=== PATIENT | female | born 2000 | race Caucasian/White ===

== ENCOUNTER 2021-06-25 09:12 | Emergency (ER) | payer MEDICAID, SELFPAY ==
[2021-06-25 09:25] VITALS: BP 110/80; PULSE 72; RESP 16; TEMP 36.7; O2SAT 99; BMI 22.6
--- NOTE | 2021-06-25 09:38 | ECG_ITS ---
APPROVED REPORT Exam: Resting ECG HR:65 bpm ECG Measurements Heart Rate 65 AXES OR 145 P 47 QRSd 78 QRS 75 QT 380 T 57 QTc 391 Conclusion SINUS RHYTHM NORMAL ECG UNCONFIRMED REPORT Electronically signed by : Jose Cunningham MD 06/25/2021 20:09:40
[2021-06-25 09:41] LABS: Microscopic, Urine URINE MICROSCOPIC (MICROSCOPIC)
--- NOTE | 2021-06-25 09:42 | HMH.EDGENADL ---
ED Disposition Clinical Impression: Left against medical advice Vomiting Qualifiers: Vomiting type: unspecified Nausea presence: with nausea Qualified Code(s): R11.2 - Nausea with vomiting, unspecified Diarrhea Qualifiers: Diarrhea type: unspecified type Qualified Code(s): R19.7 - Diarrhea, unspecified Abdominal pain Qualifiers: Abdominal location: unspecified location Qualified Code(s): R10.9 - Unspecified abdominal pain Disposition: Left Against Medical Advice Condition on Discharge: Good Referrals: Provider,Referral, MD [Primary Care Provider] - - Critical Care Critical Care Time: No Attestation: On , the high probability of a clinically significant, sudden or life threatening deterioration of the following system(s) required my full and direct attention, intervention and personal management. The time I documented below is in addition to time spent performing reported procedures but includes the following listed in this critical care notation. Medical Decision Making - Roger Inquiry Pt receiving controlled substance: No Vital Signs: 06/25/21 09:25 06/25/21 11:09 Temperature 98.1 F Temperature Source Oral Pulse Rate 68 Pulse Rate [Left Radial] 72 Respiratory Rate 16 Blood Pressure 120/61 Blood Pressure [Right Arm] 110/80 Blood Pressure Mean 77 Blood Pressure Mean [Right Arm] 90 02 Sat by Pulse Oximetry 99 100 Oxygen Delivery Method Room Air - Lab Data Lab Results 06/25/21 09:34: Urine Color Yellow, Urine Appearance Clear, Urine pH 6.5, Ur Specific [place] 1.025, Urine Protein Negative, Urine Glucose (UA) Negative, Urine Ketones Negative, Urine Blood Negative, Urine Nitrate Negative, Urine Bilirubin Negative, Urine Urobilinogen 0.2, Ur Leukocyte Esterase Negative, Urine RBC 3-5, Urine WBC None, Ur Squamous Epith Cells Occasional, Urine Bacteria Trace 06/25/21 09:34: Urine HCG, Qual Negative 06/25/21 09:40: WBC 5.3, RBC 4.43, Hgb 14.3, Hct 43.2, MCV 97.6, MCH 32.3 H, MCHC 33.1, RDW 12.7, Plt Count 288, MPV 8.4, Neut % (Auto) 64.0, Lymph % (Auto) 28.4, [place] % (Auto) 6.0, Eos % (Auto) 1.6, Baso % (Auto) 5.1 H, Neut # (Auto) 3.4, Lymph # (Auto) 1.5, [place] # (Auto) 0.3, Eos # (Auto) 0.1, Baso # (Auto) 0.3 H 06/25/21 09:40: Sodium 141, Potassium 4.1, Chloride 108 H, Carbon Dioxide 27, Anion Gap 10.1, BUN 15, Creatinine 0.70, Estimated Creat Clear 109, Estimated GFR 106, Est GFR ( Amer) 128, Glucose 97, Calcium 8.2 L, Total Bilirubin 0.5, AST 29, ALT 14, Alkaline Phosphatase 49, Total Protein 7.3, Albumin 4.3, Globulin 3.0, Albumin/Globulin Ratio 1.4 06/25/21 09:40: Lipase 66 06/25/21 09:40: TSH 0.98, Free T4 Index 2.7 L, Thyroxine (T4) 8.3, T3 Uptake 33 06/25/21 09:40: Urine Opiates Screen Negative, Urine Methadone Screen Negative, Ur Barbituates Screen Negative, Ur Phencyclidine Scrn Negative, Ur Amphetamines Screen Negative, U Benzodiazepines Scrn Negative, Urine Cocaine Screen Negative, U Marijuana (THC) Screen Positive H 06/25/21 09:40: ESR 16 06/25/21 09:40: C-Reactive Protein 1.2 Result diagrams: 06/25/21 09:40 06/25/21 09:40 Orders (Tests/Meds): ED MEDICATIONS Generic Name Dose Route Start Last Admin Trade Name Freq PRN Reason Stop Dose Admin Sodium Chloride 10 ml 06/25/21 09:30 Sodium Chloride 0.9% 10ml Flush Syringe IV 07/25/21 09:29 NEEDED PRN Maintain IV Site Discontinued Medications Generic Name Dose Route Start Last Admin Trade Name Freq PRN Reason Stop Dose Admin Lactated Ringer's 1,000 mls @ 999 mls/hr 06/25/21 09:45 06/25/21 09:48 Lactated Ringer's 1000 Ml Bag IV 06/25/21 10:45 999 mls/hr .Q1H1M KARLO Administration Iopamidol 75 ml 06/25/21 11:49 06/25/21 11:50 Iopamidol-370 (76%);100ml Bottle IV 06/25/21 11:50 75 ml ONCE ONE Administration Ondansetron HCl 4 mg 06/25/21 09:44 06/25/21 09:48 Ondansetron 4mg/2ml Vial IV 06/25/21 09:45 4 mg ONCE ONE Administration Sodium Chloride 10 ml 06/25/21 11:49
--- NOTE | 2021-06-25 09:42 | PC.NURSE ---
RN at bedside getting labs and IV, Tech did EKG @ 0037
[2021-06-25 09:57] LABS: Basophils # 0.3 K/mm3 (0-0.2); Basophils % 5.1 % (0.1-2.0); Eosinophils # 0.1 K/mm3 (0.0-0.4); Eosinophils % 1.6 % (0.1-12.0); Hematocrit 43.2 % (37.0-47.0); Hemoglobin 14.3 g/dL (12.2-16.2); Lymphocytes # 1.5 K/mm3 (0.7-4.5); Lymphocytes % 28.4 % (10-50); Mean Corpuscular HGB Conc 33.1 g/dL (31.8-35.4); Mean Corpuscular Hemoglobin 32.3 pg (27.0-31.2); Mean Corpuscular Volume 97.6 fl (81-99); Mean Platelet Volume 8.4 fl (7.4-10.4); Monocytes # 0.3 K/mm3 (0.1-1.0); Neutrophils # 3.4 K/mm3 (1.8-7.8); Platelet Count 288 K/mm3 (142-424); Red Blood Count 4.43 M/mm3 (4.20-5.40); Red Cell Distribution Width 12.7 % (11.5-17.5); White Blood Count 5.3 K/mm3 (4.8-10.8)
[2021-06-25 10:01] LABS: Appearance,Urine CLEAR (Clear); Bilirubin,Urine Negative (Negative); Blood, Urine Negative (Negative); Color,Urine YELLOW (Yellow); Glucose,Urine (UA) Negative (Negative); Ketones,Urine Negative (Negative); Leukocyte Esterase,Urine Negative (Negative); Nitrate,Urine Negative (Negative); PH,Urine 6.5 (5.0-8.5); Protein,Urine Negative (Negative); Specific Gravity, Urine 1.025 (1.005-1.030); Urobilinogen,Urine 0.2 EU/dl (0.2)
[2021-06-25 10:02] LABS: Urine Pregnancy, HCG Qual. Negative (Negative)
[2021-06-25 10:04] LABS: Chloride 108 mmol/L (98-107); Sodium 141 mmol/L (136-145)
[2021-06-25 10:05] LABS: Potassium 4.1 mmoL/L (3.5-5.1)
[2021-06-25 10:07] LABS: Alanine Aminotransferase 14 U/L (12-78); Albumin Level 4.3 g/dl (3.5-5.0); Albumin/Globulin Ratio 1.4 (1.1-1.8); Alkaline Phosphatase 49 U/L (38-126); Anion Gap 10.1 mEq/L (5-15); Aspartate Amino Transferase 29 U/L (14-36); Bilirubin,Total 0.5 mg/dl (0.2-1.3); Blood Urea Nitrogen 15 mg/dl (7-17); Carbon Dioxide 27 mmol/L (22.0-30.0); Creatinine Clearance Estimated 109 mL/min (50-200); Estimated Glomerular Filt Rate 106 ml/min (>60); GFR (African American) 128 ML/MIN (>60); Total Protein,Serum 7.3 g/dl (6.3-8.2)
[2021-06-25 10:08] LABS: Calcium 8.2 mg/dl (8.4-10.2); Glucose 97 mg/dl (74-100)
[2021-06-25 10:32] LABS: Lipase 66 U/L (23-300)
[2021-06-25 10:42] LABS: Bacteria,Urine Trace /lpf; Squamous Epithelial Cell,Urine Occasional #/hpf (0-5)
--- NOTE | 2021-06-25 10:42 | CT_ITS ---
PROCEDURE INFORMATION: Exam: CT Abdomen And Pelvis With Contrast Exam date and time: 06/25/2021 11:40 AM Age: 21 years old Clinical indication: Vomiting; Additional info: Abdo pain, vomiting, diarrhea for 1 mo TECHNIQUE: Imaging protocol: Computed tomography of the abdomen and pelvis with contrast. Radiation optimization: All CT scans at this facility use at least one of these dose optimization techniques: automated exposure control; mA and/or kV adjustment per patient size (includes targeted exams where dose is matched to clinical indication); or iterative reconstruction. Contrast material: ISOVUE; Contrast volume: 75 ml; Contrast route: IV; COMPARISON: No relevant prior studies available. FINDINGS: Liver: Normal. No mass. Gallbladder and bile ducts: Pericholecystic fluid. Possible gallstones.. Pancreas: Normal. No ductal dilation. Spleen: Normal. No splenomegaly. Adrenal glands: Normal. No mass. Kidneys and ureters: Normal. No hydronephrosis. Stomach and bowel: Low-attenuation bowel wall thickening is seen throughout the colon consistent with colitis. Differential diagnosis includes infectious and inflammatory etiologies.. Appendix: Normal appendix Intraperitoneal space: Unremarkable. No free air. No significant fluid collection. Vasculature: Unremarkable. No abdominal aortic aneurysm. Lymph nodes: Unremarkable. No enlarged lymph nodes. Urinary bladder: Unremarkable as visualized. Reproductive: Tampon in the vagina Bones/joints: Unremarkable. No acute fracture. Soft tissues: Unremarkable. IMPRESSION: 1. Low-attenuation bowel wall thickening is seen throughout the colon consistent with colitis. Differential diagnosis includes infectious and inflammatory etiologies.. . 2. Pericholecystic fluid. Possible gallstones No gallbladder wall thickening. Recommend further evaluation for acute cholecystitis if clinically indicated.
[2021-06-25 10:50] LABS: Benzodiazepines Screen,Urine Negative ng/ml (<200)
[2021-06-25 10:51] LABS: Amphetamine/Metha Screen,Urine Negative ng/ml (<1000); Free Thyroxine Index 2.7 ug/dL (5.93-13.13); T4 (Thyroxine) 8.3 ug/dl (5.53-11.0); Triiodothryronine (T3) Uptake 33 % (23.5-40.5)
[2021-06-25 10:52] LABS: Barbiturates Screen,Urine Negative ng/ml (<200); Cannabinoid Screen,Urine Positive ng/ml (<50)
[2021-06-25 10:53] LABS: Cocaine Screen,Urine Negative ng/ml (<300); Methadone Screen,Urine Negative ng/ml (<300)
[2021-06-25 10:54] LABS: Opiate Screen,Urine Negative ng/ml (<300)
[2021-06-25 10:55] LABS: Phencyclidine Screen,Urine Negative ng/ml (<25)
[2021-06-25 10:57] LABS: C-Reactive Protein 1.2 mg/L (0-4)
[2021-06-25 11:04] LABS: Thyroid Stimulating Hormone 0.98 uIU/mL (0.465-4.68)
[2021-06-25 11:09] VITALS: BP 120/61; PULSE 68; O2SAT 100
[2021-06-25 11:11] LABS: Erythrocyte Sedimentation Rate 16 mm/hr (0-20)
--- NOTE | 2021-06-25 12:38 | PC.NURSE ---
pt asked staff what the status of her dispo was. informed pt that we were awaiting CT report results. pt stated she did not want to wait on report she wanted to sign out ama. educated pt on the risks of leaving and pt still wanted to leave. ama paper signed and notified.
[2021-06-25 12:45] VITALS: BP 121/74; PULSE 85; RESP 17; TEMP 36.7; O2SAT 100
== END 2021-06-25 12:46 | disposition left against medical advice (07) ==
PROVIDERS: Emergency Provider Emergency Medicine
DX: R10.9 Unspecified abdominal pain (principal); R11.2 Nausea with vomiting, unspecified; R19.7 Diarrhea, unspecified
CPT/HCPCS: 74177; 80053; 80305; 81001; 81025; 83690; 84436; 84443; 84479; 85025; 85651; 86140; 93005; 96361; 96365; 96374; 96375; 99285; J2405; Q9967

== ENCOUNTER → 2021-07-17 08:16 | Outpatient (CLI) | payer MEDICAID, SELFPAY ==
--- NOTE | 2021-07-17 08:17 | US_ITS ---
FINAL REPORT CLINICAL HISTORY: ct poss gallstones FINDINGS: ULTRASOUND RIGHT UPPER QUADRANT Sonographic imaging of the right upper quadrant was obtained. The pancreas is partially obscured. The liver is unremarkable. There is a small amount of sludge within the gallbladder without evidence of gallstones. There is no gallbladder wall thickening. There is no biliary ductal dilatation. The common duct is normal at 2 mm. Limited images of the right kidney are unremarkable. IMPRESSION: Small amount of sludge within the gallbladder without evidence of gallstones. Reviewed, Interpreted and Dictated by Valente Cervantes MD Transcribed by Whitney Rodríguez Authenticated by Valente Cervantes MD on 07/17/2021 11:05:[address] [facility]
== END ==
PROVIDERS: PCP Nurse Practitioner Family; Visit Provider Nurse Practitioner Family
DX: R10.11 Right upper quadrant pain (principal)
CPT/HCPCS: 76705

== ENCOUNTER → 2021-07-24 09:04 | Outpatient (CLI) | payer MEDICAID, SELFPAY ==
--- NOTE | 2021-07-24 09:05 | CT_ITS ---
FINAL REPORT TECHNIQUE: After the administration of intravenous contrast, axial images were obtained through the abdomen and pelvis by computed tomography. This study was performed with technique to keep radiation doses as low as reasonably achievable, (ALARA). Individualized dose reduction techniques using automated exposure control or adjustment of the MA and/or KV according to the patient's size were employed. CLINICAL HISTORY: RUQ pain, nausea, diarrhea COMPARISON: 06/25/2021 FINDINGS: Abdomen: The lung bases are clear. The liver is normal in size and attenuation. There has been interval resolution of previously seen gallbladder wall thickening versus pericholecystic fluid. The spleen is unremarkable. The adrenals are normal. The pancreas is unremarkable. The kidneys enhance appropriately. The aorta is normal in caliber. There is no free fluid or adenopathy. There has been improvement in colonic wall thickening. Pelvis: The appendix is not identified. The urinary bladder is unremarkable. There is no free fluid or adenopathy. IMPRESSION: Interval improvement in colonic wall thickening with resolution of previously seen gallbladder wall thickening versus pericholecystic fluid. Reviewed, Interpreted and Dictated by Gavin Neal III, MD Transcribed by Jamee Damico Authenticated by Gavin Neal III, MD on 07/24/2021 10:44:07 AM [facility]
== END ==
PROVIDERS: PCP Nurse Practitioner Family; Visit Provider Surgery
DX: R10.11 Right upper quadrant pain (principal); R19.7 Diarrhea, unspecified; R11.0 Nausea
CPT/HCPCS: 74177; Q9967

== ENCOUNTER 2021-08-08 19:41 | Emergency (ER) | payer MEDICAID, SELFPAY ==
[2021-08-08 20:14] LABS: Microscopic, Urine URINE MICROSCOPIC (MICROSCOPIC)
[2021-08-08 20:17] VITALS: BP 109/83; PULSE 120; RESP 18; TEMP 36.8; O2SAT 98; BMI 22.2
--- NOTE | 2021-08-08 20:19 | HMH.EDGENADL ---
ED Disposition Clinical Impression: Abdominal cramps Nausea and vomiting Qualifiers: Vomiting type: unspecified Qualified Code(s): R11.2 - Nausea with vomiting, unspecified Disposition: Home, Self-Care Condition on Discharge: Good Instructions: DI for Vomiting -- Adult, DI for Acute Abdominal Pain Additional Instructions: You have been evaluated for abdominal cramps and nausea. Please try a food elimination diet. Do not eat gluten or bread for 2 weeks and see how your symptoms are. Then, do not eat lactose or milk for 2 weeks. Try eliminating different foods and see how your symptoms change. Take Zofran for nausea. Bentyl for cramps. Follow-up with your primary care doctor. You may need to see a GI doctor in the future. Return to the emergency department for any new or worsening symptoms, pain, vomiting, other concerns. Prescriptions: Dicyclomine HCl 20 mg PO TID PRN #21 tab PRN Reason: Cramping Transmission Status: Pending to [id number] ondansetron HCL [Ondansetron 4mg tab*] 4 mg PO Q6 PRN #12 tab PRN Reason: Vomiting Transmission Status: Pending to [id number] Referrals: Provider,Referral, [Primary Care Provider] - Time of Disposition: 23:20 - Critical Care Critical Care Time: No Attestation: On 08/08/21, the high probability of a clinically significant, sudden or life threatening deterioration of the following system(s) required my full and direct attention, intervention and personal management. The time I documented below is in addition to time spent performing reported procedures but includes the following listed in this critical care notation. Medical Decision Making - Medical Records Medical records reviewed: Yes: I reviewed the patient's medical records. - Roger Inquiry Pt receiving controlled substance: No Vital Signs: 08/08/21 20:17 Temperature 98.3 F Temperature Source Oral Pulse Rate [Left] 120 H Respiratory Rate 18 Blood Pressure [Right Arm] 109/83 L Blood Pressure Mean [Right Arm] 91 02 Sat by Pulse Oximetry 98 Oxygen Delivery Method Room Air - Lab Data Lab Results 08/08/21 20:13: Urine Color Yellow, Urine Appearance Clear, Urine pH 6.0, Ur Specific [place] 1.025, Urine Protein Negative, Urine Glucose (UA) Negative, Urine Ketones Trace, Urine Blood Negative, Urine Nitrate Negative, Urine Bilirubin Negative, Urine Urobilinogen 1.0, Ur Leukocyte Esterase Negative, Urine RBC None, Urine WBC None, Ur Squamous Epith Cells Occasional, Urine Bacteria Trace 08/08/21 20:13: Urine HCG, Qual Negative 08/08/21 20:15: WBC 8.3, RBC 4.85, Hgb 15.6, Hct 47.1 H, MCV 97.2, MCH 32.3 H, MCHC 33.2, RDW 12.6, Plt Count 306, MPV 8.2, Neut % (Auto) 70.5, Lymph % (Auto) 20.2, [place] % (Auto) 5.8, Eos % (Auto) 0.7, Baso % (Auto) 2.8 H, Neut # (Auto) 5.9, Lymph # (Auto) 1.7, [place] # (Auto) 0.5, Eos # (Auto) 0.1, Baso # (Auto) 0.2 08/08/21 20:15: Sodium 140, Potassium 3.8, Chloride 103, Carbon Dioxide 27, Anion Gap 13.8, BUN 12, Creatinine 0.80, Estimated Creat Clear 91, Estimated GFR 91, Est GFR ( Amer) 110, Glucose 78, Calcium 9.6, Total Bilirubin 0.7, AST 31, ALT 18, Alkaline Phosphatase 50, Total Protein 8.4 H, Albumin 5.0, Globulin 3.4 H, Albumin/Globulin Ratio 1.5, Lipase 76 Result diagrams: 08/08/21 20:15 08/08/21 20:15 Orders (Tests/Meds): ED MEDICATIONS Generic Name Dose Route Start Last Admin Trade Name Freq PRN Reason Stop Dose Admin Sodium Chloride 500 mls @ 999 mls/hr 08/08/21 20:15 08/08/21 20:17 Sod Chlor 0.9% 1000ml Bag IV 08/08/21 20:45 999 mls/hr .Q31M KARLO Administration Discontinued Medications Generic Name Dose Route Start Last Admin Trade Name Freq PRN Reason Stop Dose Admin Dicyclomine HCl 10 mg 08/08/21 20:11 08/08/21 20:47 Dicyclomine 10mg Capsule PO 08/08/21 20:12 10 mg ONCE ONE Administration Diphenhydramine HCl 12.5 mg 08/08/21 21:02 08/08/21 21:15 Diphenhydramine 50mg/Ml Vial IV 08/08/21 21:03 12.5
[2021-08-08 20:20] LABS: Appearance,Urine CLEAR (Clear); Bilirubin,Urine Negative (Negative); Blood, Urine Negative (Negative); Color,Urine YELLOW (Yellow); Glucose,Urine (UA) Negative (Negative); Ketones,Urine TRACE (Negative); Leukocyte Esterase,Urine Negative (Negative); Nitrate,Urine Negative (Negative); Protein,Urine Negative (Negative); Specific Gravity, Urine 1.025 (1.005-1.030)
[2021-08-08 20:24] LABS: Basophils # 0.2 K/mm3 (0-0.2); Basophils % 2.8 % (0.1-2.0); Eosinophils # 0.1 K/mm3 (0.0-0.4); Eosinophils % 0.7 % (0.1-12.0); Hematocrit 47.1 % (37.0-47.0); Hemoglobin 15.6 g/dL (12.2-16.2); Lymphocytes # 1.7 K/mm3 (0.7-4.5); Lymphocytes % 20.2 % (10-50); Mean Corpuscular HGB Conc 33.2 g/dL (31.8-35.4); Mean Corpuscular Hemoglobin 32.3 pg (27.0-31.2); Mean Corpuscular Volume 97.2 fl (81-99); Mean Platelet Volume 8.2 fl (7.4-10.4); Monocytes # 0.5 K/mm3 (0.1-1.0); Monocytes % 5.8 % (1.7-9.3); Neutrophils # 5.9 K/mm3 (1.8-7.8); Neutrophils % 70.5 % (37.0-80.0); Platelet Count 306 K/mm3 (142-424); Red Blood Count 4.85 M/mm3 (4.20-5.40); Red Cell Distribution Width 12.6 % (11.5-17.5); White Blood Count 8.3 K/mm3 (4.8-10.8)
[2021-08-08 20:43] LABS: Urine Pregnancy, HCG Qual. Negative (Negative)
[2021-08-08 20:46] LABS: Chloride 103 mmol/L (98-107)
[2021-08-08 20:49] LABS: Alanine Aminotransferase 18 U/L (12-78); Alkaline Phosphatase 50 U/L (38-126); Aspartate Amino Transferase 31 U/L (14-36); Bilirubin,Total 0.7 mg/dl (0.2-1.3); Blood Urea Nitrogen 12 mg/dl (7-17); Calcium 9.6 mg/dl (8.4-10.2); Carbon Dioxide 27 mmol/L (22.0-30.0); Creatinine Clearance Estimated 91 mL/min (50-200); Estimated Glomerular Filt Rate 91 ml/min (>60); GFR (African American) 110 ML/MIN (>60); Glucose 78 mg/dl (74-100)
--- NOTE | 2021-08-08 20:52 | PC.NURSE ---
pain upon medication admin was 01/15 will reassess
[2021-08-08 21:00] VITALS: BP 119/73; PULSE 96; O2SAT 100
[2021-08-08 21:05] LABS: Anion Gap 13.8 mEq/L (5-15); Potassium 3.8 mmoL/L (3.5-5.1); Sodium 140 mmol/L (136-145)
[2021-08-08 21:08] LABS: Albumin/Globulin Ratio 1.5 (1.1-1.8); Globulin 3.4 g/dL (1.3-3.2); Lipase 76 U/L (23-300); Total Protein,Serum 8.4 g/dl (6.3-8.2)
[2021-08-08 21:25] VITALS: BP 104/41; PULSE 99; O2SAT 96
[2021-08-08 21:49] LABS: Bacteria,Urine Trace /lpf; Squamous Epithelial Cell,Urine Occasional #/hpf (0-5)
[2021-08-08 22:00] VITALS: BP 92/59; PULSE 99; O2SAT 96
--- NOTE | 2021-08-08 22:17 | PC.NURSE ---
pt sleeping at this time, will let pt rest and then POR challenger her per MD.
[2021-08-08 22:50] VITALS: BP 95/62; PULSE 74; O2SAT 99
[2021-08-08 23:40] VITALS: BP 95/62; PULSE 74; RESP 16; TEMP 36.6; O2SAT 99
== END 2021-08-08 23:44 | disposition home or self-care (01) ==
LOC: UTC 19:45 → ER 19:59
PROVIDERS: Emergency Provider Emergency Medicine
DX: R10.11 Right upper quadrant pain (principal); R11.2 Nausea with vomiting, unspecified; R00.0 Tachycardia, unspecified; F17.210 Nicotine dependence, cigarettes, uncomplicated; Z79.899 Other long term (current) drug therapy
CPT/HCPCS: 80053; 81001; 81025; 83690; 85025; 96374; 96375; 99285; J2405

== ENCOUNTER 2023-01-30 08:58 | Emergency (ER) | payer SELFPAY ==
[2023-01-30] VITALS (7 sets, daily range): BP systolic 97–109; BP diastolic 63–79; PULSE 79–99; RESP 16; TEMP 36.6–36.7; O2SAT 98–100; BMI 21.7
[2023-01-30 09:30] LABS: Microscopic, Urine URINE MICROSCOPIC (MICROSCOPIC)
[2023-01-30 09:33] LABS: Appearance,Urine CLEAR (Clear); Bilirubin,Urine Negative (Negative); Blood, Urine TRACE-I (Negative); Color,Urine YELLOW (Yellow); Glucose,Urine (UA) Negative (Negative); Ketones,Urine Negative (Negative); Leukocyte Esterase,Urine Negative (Negative); Nitrate,Urine Negative (Negative); PH,Urine 5.5 (5.0-8.5); Protein,Urine Negative (Negative); Specific Gravity, Urine >= 1.030 (1.005-1.030); Urobilinogen,Urine 0.2 EU/dl (0.2)
[2023-01-30 09:36] LABS: Urine Pregnancy, HCG Qual. Negative (Negative)
--- NOTE | 2023-01-30 09:37 | PC.NURSE ---
Pt given ice water, no other needs at this time
[2023-01-30 09:46] LABS: Mucus,Urine Trace /lpf; Squamous Epithelial Cell,Urine Occasional #/hpf (0-5)
--- NOTE | 2023-01-30 09:48 | PC.NURSE ---
Pt works at [employer] and would like a covid test d/t returning to work questionability.
[2023-01-30 09:52] LABS: Coronavirus 19, PCR Not Detected (NotDetected); Influenza A, PCR Not Detected (NotDetected); Influenza B, PCR Not Detected (NotDetected)
[2023-01-30 09:56] LABS: Basophils % 0.1 % (0.1-2.0); Eosinophils # 0.1 K/mm3 (0.0-0.4); Eosinophils % 0.7 % (0.1-12.0); Hematocrit 47.1 % (37.0-47.0); Hemoglobin 16.2 g/dL (12.2-16.2); Lymphocytes # 0.4 K/mm3 (0.7-4.5); Lymphocytes % 3.3 % (10-50); Mean Corpuscular HGB Conc 34.3 g/dL (31.8-35.4); Mean Corpuscular Hemoglobin 33.5 pg (27.0-31.2); Mean Corpuscular Volume 97.6 fl (81-99); Mean Platelet Volume 8.3 fl (7.4-10.4); Monocytes # 0.3 K/mm3 (0.1-1.0); Monocytes % 2.4 % (1.7-9.3); Neutrophils # 11.9 K/mm3 (1.8-7.8); Neutrophils % 93.5 % (37.0-80.0); Platelet Count 233 K/mm3 (142-424); Red Blood Count 4.83 M/mm3 (4.20-5.40); Red Cell Distribution Width 12.7 % (11.5-17.5); White Blood Count 12.7 K/mm3 (4.8-10.8)
[2023-01-30 09:59] LABS: MANUAL DIFFERENTIAL MANUAL DIFFERENTIAL (MANUAL DIFF)
[2023-01-30 10:00] LABS: Creatine Kinase 98 U/L (30-135); Lipase 43 U/L (23-300)
[2023-01-30 10:01] LABS: Magnesium 1.6 mg/dl (1.6-2.3)
--- NOTE | 2023-01-30 10:03 | PC.NURSE ---
rounded on pt. pt has just returned from bathroom. pt hooked back up to monitor and IVF. Pt states no needs at this time. call light in reach
[2023-01-30 10:09] LABS: Lymphocytes % 2 % (10-50); Monocytes % 3 % (2-9); Neutrophils % 95 % (42-76); Total Cells Counted 100
[2023-01-30 10:10] LABS: Platelet Estimate Normal; RBC Morphology Normal
--- NOTE | 2023-01-30 10:12 | HMH.EDGENADL ---
Discharge Plan Disposition Patient Disposition: Home, Self-Care Prescriptions Prescriptions: New ondansetron HCl 4 mg tablet 4 mg PO Q8H PRN (Reason: nausea and vomiting) 5 Days Qty: 30 0RF No Action dicyclomine 20 MG tablet 20 mg PO TID PRN (Reason: Cramping) Qty: 21 0RF ondansetron HCl 4 MG tablet 4 mg PO Q6 PRN (Reason: Vomiting) Qty: 12 0RF Referrals Follow up/Referrals: Provider,Referral, MD [Primary Care Provider] - See instructions Activity Restrictions/Add. Instructions Additional Instructions/Restrictions: Please take Zofran as prescribed. Please follow-up with your primary care provider. Please return to the emergency department if you develop any new or worsening symptoms or become concerned for your health. Clinical Impressions Clinical Impression: Vomiting, Diarrhea, Abdominal pain Stand Alone Forms Stand Alone Forms: Work/School Release Instructions Patient Instructions: DI for Diarrhea and Traveler's Diarrhea -- Adult, DI for Nausea -- Adult Discharge ED Provider: Jose Snell Adult HPI General Chief complaint: Nausea/Vomiting/Diarrhea Stated complaint: THROWING UP, ABDOMINAL PAIN, DIARRHEA Time Seen by Provider: 01/30/23 09:06 Mode of Arrival: Ambulatory Source of Information: Patient Limitations: No Limitations Description of Symptoms (Recalled from ER Triage Doc. by RN): pt reports v/d that started at 0300 this morning. Reports having intermittent epigastric pain that started after v/d History of Present Illness HPI narrative: 22-year-old female, previously healthy, presents with nausea and vomiting and diarrhea beginning early this morning. She reports that she was feeling a little bad yesterday but it was nonspecific. She reports mild generalized abdominal pain worse with vomiting. She reports no significant prior past medical history. She denies any possibility of because she is not sexually active. She reports no blood in the vomiting or diarrhea. Related Data Previous Rx's Medication Instructions Recorded dicyclomine 20 mg tablet 20 mg PO TID PRN Cramping #21 tabs 08/08/21 ondansetron HCl 4 mg tablet 4 mg PO Q6 PRN Vomiting #12 tabs 08/08/21 ondansetron HCl 4 mg tablet 4 mg PO Q8H PRN nausea and 01/30/23 vomiting 5 days #30 tabs Allergies Allergy/AdvReac Type Severity Reaction Status Date / Time No Known Allergies Allergy Verified 07/18/21 09:24 [facility] Disclaimer: The information contained in this section may have been updated after the patient was seen, as this information can be updated by other users. Social History Smoking Status: Never smoker alcohol intake: never current occupational status: employed Travel in the last 8 weeks: None ROS Obtained: Yes All systems reviewed & no additional complaints except as documented Physical Exam General General appearance: alert and in no apparent distress Head Head exam: atraumatic and normocephalic Eye Eye exam: Present normal appearance, PERRL and EOMI ENT ENT exam: Present normal oropharynx and normal external ear exam Neck Neck exam: Present normal inspection and full ROM Chest Chest inspection: Present normal inspection and symmetric chest wall rise; Absent tenderness Respiratory Respiratory exam: Present normal lung sounds bilaterally; Absent respiratory distress Cardiovascular Cardiovascular exam: Present regular rate and normal rhythm Abdominal Exam Abdominal exam: Present soft and tenderness (Mild, worse in the epigastrium); Absent distention or guarding Extremities Exam Extremities exam: Present normal inspection; Absent edema or joint swelling Back Exam Back exam: Present normal inspection; Absent tenderness Neurological Exam Neurological exam: Present alert and oriented X3; Absent motor sensory deficit Psychiatric Psychiatric exam: Present normal affect and normal mood Skin Skin exam: Present warm, dry and normal color Lymphatic Lymphatic Findin
[2023-01-30 10:29] LABS: HCG Qualitative, Serum Negative (Negative)
--- NOTE | 2023-01-30 10:46 | PC.NURSE ---
Dr. Snell at BS to update patient of POC/results.
== END 2023-01-30 11:39 | disposition home or self-care (01) ==
PROVIDERS: Emergency Provider Emergency Medicine
DX: R10.84 Generalized abdominal pain (principal); R11.2 Nausea with vomiting, unspecified; R19.7 Diarrhea, unspecified
CPT/HCPCS: 81001; 81025; 82550; 83690; 83735; 84703; 85007; 85025; 87636; 96361; 96374; 99284; J2405

== ENCOUNTER 2023-05-17 14:43 | Outpatient (CLI) | payer OTHER, SELFPAY ==
--- NOTE | 2023-05-17 14:54 | XR_ITS ---
FINAL REPORT CLINICAL HISTORY: PAIN IN LT HAND 5th digit FINDINGS: LEFT HAND Three views demonstrate no acute fracture or dislocation. The visualized joint spaces are normally aligned. The soft tissues are unremarkable. IMPRESSION: No acute process. Reviewed, Interpreted and Dictated by Gavin Neal III, MD Transcribed by Jamee Damico Authenticated and [facility]
== END 2023-05-17 23:59 ==
PROVIDERS: PCP Nurse Practitioner Family; Visit Provider Nurse Practitioner Family
DX: M79.645 Pain in left finger(s) (principal)
CPT/HCPCS: 73130